=== PATIENT | female | born 1970 | race Caucasian/White ===

== ENCOUNTER 2017-05-28 06:20 | Emergency (ER) | payer BC, OTHER ==
[2017-05-28 06:31] VITALS: BP 147/76; PULSE 109; RESP 20; TEMP 98.5
[2017-05-28] MEDS ORDERED: AMOXICILLIN 500 MG CAP PO STA (07:22)
--- NOTE | 2017-05-28 07:22 | ED ---
General Adult HPI - General Chief complaint: Dental/Oral Stated complaint: dental/ear pain Time Seen by Provider: 05/28/17 07:00 Source: patient, RN notes reviewed Mode of arrival: ambulatory Limitations: no limitations - History of Present Illness Initial comments: This is a 46-year-old female who presents emergency Department complaining of left lower jaw pain she believes is related to her molar. Patient states been ongoing for a couple of days. Patient states it hurts to press in the tooth that she has noticed some swelling around the tooth. Rates she does have a dentist but has not seen him for this. Patient denies any fever. Patient denies any drainage in that area. Patient denies any jaw pain she is mostly complaining of the left lower molar is extremely tender - Related Data Home Medications Medication Instructions Recorded Confirmed ALPRAZolam [Xanax] 0.5 mg PO TID PRN 01/04/14 01/04/14 INSULIN LISPRO (humaLOG) [humaLOG] 0 units SQ DIRECTED 01/04/14 01/04/14 Insulin Glargine [Lantus] 27 unit SQ HS 01/04/14 01/04/14 Losartan [Cozaar] 25 mg PO DAILY 01/04/14 01/04/14 buPROPion HCL [Wellbutrin] 200 mg PO BID 01/04/14 01/04/14 Previous Rx's Medication Instructions Recorded Hydrocodone/Acetaminophen [Sunflower 1 each PO Q6HR PRN #20 tab 01/04/14 5-325] Clindamycin HCl 300 mg PO Q6H #40 cap 05/28/17 Hydrocodone/Acetaminophen [Sunflower 1 each PO Q4HR PRN #10 tab 05/28/17 5-325] Ibuprofen [Motrin] 600 mg PO Q6HR PRN #20 tab 05/28/17 Allergies Allergy/AdvReac Type Severity Reaction Status Date / Time Penicillins Allergy Unknown Verified 05/28/17 06:31 Review of Systems ROS Statement: Those systems with pertinent positive or pertinent negative responses have been documented in the HPI. ROS Other: All systems not noted in ROS Statement are negative. Past Medical History Past Medical History: Diabetes Mellitus History of Any Multi-Drug Resistant Organisms: None Reported Additional Past Surgical History / Comment(s): oral surgery Past Psychological History: Anxiety, Depression Smoking Status: Current every day smoker Past Alcohol Use History: Occasional Past Drug Use History: None Reported General Exam - General Exam Comments Initial Comments: fGENERAL Patient is well-developed and well-nourished. Patient is in mild distress. EYES Patient's pupils are equal and round. Extraocular motion is intact Mouth Patient has an abscess just adjacent to the lower left molar SKIN Unremarkable NEURO The patient is alert and oriented 3 PYSCH Patient has normal interpersonal interactions. MUSCULOSKELETAL Limitations: no limitations Course Vital Signs 05/28/17 06:27 Temperature 98.5 F Pulse Rate 109 H Respiratory 20 Rate Blood Pressure 147/76 O2 Sat by Pulse 99 Oximetry Procedures - Incision & Drainage Consent Obtained: verbal consent Time Out Performed?: No Site: other (Dental) Anesthetic Used: lidocaine 1% Needle Aspiration Performed?: Yes (Post was immediately obtained) Irrigation Performed?: No I&D Drainage Obtained: Pus, Blood Patient Tolerated Procedure: well Medical Decision Making - Medical Decision Making I performed an inferior alveolar dental block which worked well I did this prior to the I&D. Disposition Clinical Impression: Dental abscess Disposition: HOME SELF-CARE Condition: Good Instructions: Dental Abscess (ED) Prescriptions: Clindamycin HCl 300 mg PO Q6H #40 cap Hydrocodone/Acetaminophen [Sunflower 5-325] 1 each PO Q4HR PRN #10 tab PRN Reason: Pain Ibuprofen [Motrin] 600 mg PO Q6HR PRN #20 tab PRN Reason: For pain Referrals: None,Stated [Primary Care Provider] - 1-2 days Time of Disposition: 07:21
[2017-05-28] MEDS ORDERED: KETOROLAC 60 MG/2 ML VIAL IM STA (07:23)
[2017-05-28] MEDS ORDERED: CLINDAMYCIN 150 MG CAP PO STA (07:26)
== END 2017-05-28 07:44 | disposition home or self-care (01) ==
LOC: EC 06:20
DX: K04.7 Periapical abscess without sinus (principal); E11.9 Type 2 diabetes mellitus without complications; F32.9 Major depressive disorder, single episode, unspecified; F17.200 Nicotine dependence, unspecified, uncomplicated; Z79.4 Long term (current) use of insulin; Z79.899 Other long term (current) drug therapy; Z88.0 Allergy status to penicillin
CPT/HCPCS: 99283; 10160; 96372; J1885

== ENCOUNTER 2024-07-15 18:43 | Inpatient (IN) | payer BC, OTHER ==
--- NOTE | 2024-07-15 19:28 | ED ---
General Adult HPI - General Chief complaint: Altered Mental Status Stated complaint: petition Time Seen by Provider: 07/15/24 19:04 Source: patient, EMS Mode of arrival: EMS Limitations: altered mental status - History of Present Illness Initial comments: Pain is a 53-year-old female with history of type 1 diabetes and depression who was brought to the ER today by EMS with police escort for psychiatric evaluation. Apparently the patient was found screaming crying being very upset and inconsolable. Patient notes that she has not used any insulin since 1 AM yesterday and she has been drinking alcohol today. Patient is feeling depressed because she recently lost her job. Patient states she was not trying to harm herself and does not want to end her life she is just feeling very depressed. - Related Data Home Medications Medication Instructions Recorded Confirmed Unable To Assess [Unable to Assess] 07/15/24 07/15/24 Allergies Allergy/AdvReac Type Severity Reaction Status Date / Time Penicillins Allergy Unknown Verified 05/28/17 06:31 Review of Systems ROS Statement: Those systems with pertinent positive or pertinent negative responses have been documented in the HPI. ROS Other: All systems not noted in ROS Statement are negative. Past Medical History Past Medical History: Diabetes Mellitus History of Any Multi-Drug Resistant Organisms: None Reported Additional Past Surgical History / Comment(s): oral surgery Past Psychological History: Anxiety, Depression Past Alcohol Use History: Occasional Past Drug Use History: None Reported General Exam - General Exam Comments Initial Comments: Physical Exam GENERAL: Agitated, screaming HENT: Normocephalic, Atraumatic. Dry mucous membranes, cracked lips EYES: PERRL, EOMI PULMONARY: Unlabored respirations. CARDIOVASCULAR: Warm and well perfused extremities ABDOMEN: Non-distended SKIN: No rashes or bruising : Deferred NEUROLOGIC: Alert and oriented Normal gait Pressured speech MUSCULOSKELETAL: Moving all extremities with no apparent injury PSYCHIATRIC: Agitated, combative, depressed Limitations: altered mental status Course Vital Signs 07/15/24 07/15/24 18:47 20:52 Temperature 98.6 F Pulse Rate 98 Respiratory 20 18 Rate Blood Pressure 136/72 O2 Sat by Pulse 98 Oximetry EKG Findings - EKG Comments: EKG Findings:: EKG interpreted by me EKG obtained due to tachycardia EKG obtained at 2331 EKG with a rate of 106 rhythm is sinus tach normal axis normal intervals OK 128 QRS 79 QTc 4 9 there are no acute ST elevations or depressions no evidence of ischemia infarction or pathologic arrhythmia. Medical Decision Making - Medical Decision Making Was pt. sent in by a medical professional or institution ([facility], [employer], urgent care, hospital, or [facility]...) When possible be specific @ -No Did you speak to anyone other than the patient for history (EMS, parent, family, police, friend...)? What history was obtained from this source @ -EMS, law enforcement Did you review nursing and triage notes (agree or disagree)? Why? @ -I reviewed and agree with nursing and triage notes Were old charts reviewed (outside hosp., previous admission, EMS record, old EKG, old radiological studies, urgent care reports/EKG's, [facility] records)? Report findings @ -Previous notes were reviewed Differential Diagnosis (chest pain, altered mental status, abdominal pain women, abdominal pain men, vaginal bleeding, weakness, fever, dyspnea, syncope, headache, dizziness, GI bleed, back pain, seizure, CVA, palpatations, mental health)? @ -Differential Mental Health Depression, anxiety, bipolar, psychosis, schizophrenia, borderline personality, situational depression, adjustment disorder, behavioral disorder, brain tumor, malingering, substance abuse, encephalopathy, medication reaction, dementia, hypothyroidism, degenerative neurologic disorder, lupus.... This is not meant to be all-inclusive list EKG interpreted by me (3pts min.). @ -As above X-rays interpreted by me (1pt min.). @ -None done CT interpreted by me (1pt min.). @ -None done U/S interpreted by me (1pt. min.). @ -None done What testing was considered but not performed or refused? (CT, X-rays, U/S, labs)? Why? @ -None What meds were considered but not given or refused? Why? @ -None Did you discuss the management of the patient with other professionals (professionals i.e. [facility], [employer], lab, RT, psych nurse, 7th grade social studies teacher, liquid fertilizer servicer, teacher, parole hearing officer, case aide)? Give summary @ -No Was smoking cessation discussed for >3mins.? @ -No Was critical care preformed (if so, how long)? @ -Yes, 45 minutes Were there social determinants of health that impacted care today? How? (Homelessness, low income, unemployed, alcoholism, drug addiction, transportation, low edu. Level, literacy, decrease access to med. care, senior care, rehab)? @ -Decreased access to medical care, lack of medical insurance, low income, unemployed Was there de-escalation of care discussed even if they declined (Discuss DNR or withdrawal of care, Hospice)? DNR status @ -No What co-morbidities impacted this encounter? (DM, HTN, Smoking, COPD, CAD, Cancer, CVA, ARF, Chemo, Hep., AIDS, mental health diagnosis, sleep apnea, morbid obesity)? @ -Type 1 diabetes, mental health diagnosis Was patient admitted / discharged? Hospital course, mention meds given and route, prescriptions, significant lab abnormalities, going to OR and other pertinent info. @ -Admit The patient was seen and evaluated, history is obtained from patient. Patient is acutely agitated crying refusing any interaction, screaming at staff. Denilson carmen does admit to depression, alcohol intoxication and failure to use her insulin for over 36 hours. At this time patient has been petitioned for her own protection due to concern of danger to herself. Patients agitation was treated with Haldol and Ativan, patient then become much more calm we were able to establish IV access obtain blood check her glucose note that she was profoundly hyperglycemic and began treatment for possible DKA. Labs are consistent with DKA, IV fluids and insulin were ordered. Patient will be admitted overnight for treatment of DKA with the plan for consult to psy chiatric services when the patient is medically cleared. Undiagnosed new problem with uncertain prognosis? @ -No Drug Therapy requiring intensive monitoring for toxicity (Heparin, Nitro, Insulin, Cardizem)? @ -Yes, insulin Were any procedures done? @ -No Diagnosis/symptom? @ -DKA due to medication noncompliance, depression, alcohol intoxication Acute, or Chronic, or Acute on Chronic? @ -Acute Uncomplicated (without systemic symptoms) or Complicated (systemic symptoms)? @ -Complicated Side effects of treatment? @ -No Exacerbation, Progression, or Severe Exacerbation? @ -No Poses a threat to life or bodily function? How? (Chest pain, [place], [place], pneumonia, PE, COPD, DKA, ARF, appy, cholecystitis, CVA, Diverticulitis, Homicidal, Suicidal, threat to staff... and all critical care pts) @ -Yes, can lead to electrolyte abnormalities cardiac dysrhythmia renal failure and - Lab Data Result diagrams: 07/15/24 20:42 07/15/24 20:42 Lab Results 07/15/24 07/15/24 07/15/24 Range/Units 20:42 20:42 20:42 WBC 6.8 (3.8-10.6) k/uL RBC 4.68 (3.80-5.40) m/uL Hgb 14.4 (11.4-16.0) gm/dL Hct 44.8 (34.0-46.0) % MCV 95.7 (80.0-100.0) fL MCH 30.8 (25.0-35.0) pg MCHC 32.2 (31.0-37.0) g/dL RDW 12.3 (11.5-15.5) % Plt Count 247 (150-450) k/uL MPV 7.6 Neutrophils % 78 % Lymphocytes % 16 % Monocytes % 3 % Eosinophils % 1 % Basophils % 1 % Neutrophils # 5.3 (1.3-7.7) k/uL Lymphocytes # 1.1 (1.0-4.8) k/uL Monocytes # 0.2 (0-1.0) k/uL Eosinophils # 0.1 (0-0.7) k/uL Basophils # 0.1 (0-0.2) k/uL Sodium 134 L (137-145) mmol/L Potassium 4.5 (3.5-5.1) mmol/L Chloride 99 (98-107) mmol/L Carbon Dioxide 15 L (22-30) mmol/L Anion Gap 20 mmol/L BUN 15 (7-17) mg/dL Creatinine 1.04 (0.52-1.04) mg/dL Est GFR (CKD-EPI)AfAm 72 (>60 ml/min/1.73 sqM) Est GFR (CKD-EPI)NonAf 63 (>60 ml/min/1.73 sqM) Glucose 547 H* (74-99) mg/dL POC Glucose (mg/dL) (70-110) mg/dL POC Glu Web Developer Programmer ID Lactic Ac Sepsis Rflx Plasma Lactic Acid [place] 5.8 H* (0.7-2.0) mmol/L Calcium 9.3 (8.4-10.2) mg/dL Magnesium 2.2 (1.6-2.3) mg/dL Total Bilirubin 0.7 (0.2-1.3) mg/dL AST 26 (14-36) U/L ALT 20 (4-34) U/L Alkaline Phosphatase 78 (38-126) U/L Total Protein 7.3 (6.3-8.2) g/dL Albumin 4.8 (3.5-5.0) g/dL Urine Color Urine Appearance (Clear) Urine pH (5.0-8.0) Ur Specific [place] (1.001-1.035) Urine Protein (Negative) Urine Glucose (UA) (Negative) Urine Ketones (Negative) Urine Blood (Negative) Urine Nitrite (Negative) Urine Bilirubin (Negative) Urine Urobilinogen (<2.0) mg/dL Ur Leukocyte Esterase (Negative) Salicylates <1.0 mg/dL Urine Opiates Screen (NotDetected) Ur Oxycodone Screen (NotDetected) Urine Methadone Screen (NotDetected) Acetaminophen <10.0 ug/mL Ur Barbiturates Screen (NotDetected) U Tricyclic Antidepress (NotDetected) Ur Phencyclidine Scrn (NotDetected) Ur Amphetamines Screen (NotDetected) U Methamphetamines Scrn (NotDetected) U Benzodiazepines Scrn (NotDetected) Urine Cocaine Screen (NotDetected) U Marijuana (THC) Screen (NotDetected) Serum Alcohol 148 mg/dL Acetone, Qual Negative (Negative) 07/15/24 07/15/24 07/15/24 Range/Units 20:47 21:05 22:20 WBC (3.8-10.6) k/uL RBC (3.80-5.40) m/uL Hgb (11.4-16.0) gm/dL Hct (34.0-46.0) % MCV (80.0-100.0) fL MCH (25.0-35.0) pg MCHC (31.0-37.0) g/dL RDW (11.5-15.5) % Plt Count (150-450) k/uL MPV Neutrophils % % Lymphocytes % % Monocytes % % Eosinophils % % Basophils % % Neutrophils # (1.3-7.7) k/uL Lymphocytes # (1.0-4.8) k/uL Monocytes # (0-1.0) k/uL Eosinophils # (0-0.7) k/uL Basophils # (0-0.2) k/uL Sodium (137-145) mmol/L Potassium (3.5-5.1) mmol/L Chloride (98-107) mmol/L Carbon Dioxide (22-30) mmol/L Anion Gap mmol/L BUN (7-17) mg/dL Creatinine (0.52-1.04) mg/dL Est GFR (CKD-EPI)AfAm (>60 ml/min/1.73 sqM) Est GFR (CKD-EPI)NonAf (>60 ml/min/1.73 sqM) Glucose (74-99) mg/dL POC Glucose (mg/dL) 500 H (70-110) mg/dL POC Glu Web Developer Programmer ID MARILEE SCIANDRA Lactic Ac Sepsis Rflx Y Plasma Lactic Acid [place] (0.7-2.0) mmol/L Calcium (8.4-10.2) mg/dL Magnesium (1.6-2.3) mg/dL Total Bilirubin (0.2-1.3) mg/dL AST (14-36) U/L ALT (4-34) U/L Alkaline Phosphatase (38-126) U/L Total Protein (6.3-8.2) g/dL Albumin (3.5-5.0) g/dL Urine Color Colorless Urine Appearance Clear (Clear) Urine pH 5.0 (5.0-8.0) Ur Specific [place] 1.024 (1.001-1.035) Urine Protein Negative (Negative) Urine Glucose (UA) 4+ H (Negative) Urine Ketones Negative (Negative) Urine Blood Negative (Negative) Urine Nitrite Negative (Negative) Urine Bilirubin Negative (Negative) Urine Urobilinogen <2.0 (<2.0) mg/dL Ur Leukocyte Esterase Negative (Negative) Salicylates mg/dL Urine Opiates Screen Not Detected (NotDetected) Ur Oxycodone Screen Not Detected (NotDetected) Urine Methadone Screen Not Detected (NotDetected) Acetaminophen ug/mL Ur Barbiturates Screen Not Detected (NotDetected) U Tricyclic Antidepress Not Detected (NotDetected) Ur Phencyclidine Scrn Not Detected (NotDetected) Ur Amphetamines Screen Not Detected (NotDetected) U Methamphetamines Scrn Not Detected (NotDetected) U Benzodiazepines Scrn Not Detected (NotDetected) Urine Cocaine Screen Not Detected (NotDetected) U Marijuana (THC) Screen Not Detected (NotDetected) Serum Alcohol mg/dL Acetone, Qual (Negative) 07/15/24 Range/Units 22:31 WBC (3.8-10.6) k/uL RBC (3.80-5.40) m/uL Hgb (11.4-16.0) gm/dL Hct (34.0-46.0) % MCV (80.0-100.0) fL MCH (25.0-35.0) pg MCHC (31.0-37.0) g/dL RDW (11.5-15.5) % Plt Count (150-450) k/uL MPV Neutrophils % % Lymphocytes % % Monocytes % % Eosinophils % % Basophils % % Neutrophils # (1.3-7.7) k/uL Lymphocytes # (1.0-4.8) k/uL Monocytes # (0-1.0) k/uL Eosinophils # (0-0.7) k/uL Basophils # (0-0.2) k/uL Sodium (137-145) mmol/L Potassium (3.5-5.1) mmol/L Chloride (98-107) mmol/L Carbon Dioxide (22-30) mmol/L Anion Gap mmol/L BUN (7-17) mg/dL Creatinine (0.52-1.04) mg/dL Est GFR (CKD-EPI)AfAm (>60 ml/min/1.73 sqM) Est GFR (CKD-EPI)NonAf (>60 ml/min/1.73 sqM) Glucose (74-99) mg/dL POC Glucose (mg/dL) 374 H (70-110) mg/dL POC Glu Web Developer Programmer ID Caya Destiny Lactic Ac Sepsis Rflx Plasma Lactic Acid [place] (0.7-2.0) mmol/L Calcium (8.4-10.2) mg/dL Magnesium (1.6-2.3) mg/dL Total Bilirubin (0.2-1.3) mg/dL AST (14-36) U/L ALT (4-34) U/L Alkaline Phosphatase (38-126) U/L Total Protein (6.3-8.2) g/dL Albumin (3.5-5.0) g/dL Urine Color Urine Appearance (Clear) Urine pH (5.0-8.0) Ur Specific [place] (1.001-1.035) Urine Protein (Negative) Urine Glucose (UA) (Negative) Urine Ketones (Negative) Urine Blood (Negative) Urine Nitrite (Negative) Urine Bilirubin (Negative) Urine Urobilinogen (<2.0) mg/dL Ur Leukocyte Esterase (Negative) Salicylates mg/dL Urine Opiates Screen (NotDetected) Ur Oxycodone Screen (NotDetected) Urine Methadone Screen (NotDetected) Acetaminophen ug/mL Ur Barbiturates Screen (NotDetected) U Tricyclic Antidepress (NotDetected) Ur Phencyclidine Scrn (NotDetected) Ur Amphetamines Screen (NotDetected) U Methamphetamines Scrn (NotDetected) U Benzodiazepines Scrn (NotDetected) Urine Cocaine Screen (NotDetected) U Marijuana (THC) Screen (NotDetected) Serum Alcohol mg/dL Acetone, Qual (Negative) Critical Care Time Critical Care Time: Yes Total Critical Care Time: 45 Critical Care Time: Critical Care Time 45 Critical care time was exclusive of separately billable procedures and treating other patients and teaching time. Critical care was necessary to treat or prevent imminent or life-threatening deterioration. Given the critical condition in which the patient arrived, the patient was immediately assessed by myself and the nurse, and cardiac monitoring initiated due to the potential for rapid decompensation of the patient's clinical condition. During the course of the patients stay, I spent a considerable amount of time at the bedside performing serial re-evaluations of the patient's hemodynamic and clinical status because of the recognized potential threat to life or limb in this condition. I then had a chance to review not only all of the available current laboratory and radiographic studies obtained today, but I also reviewed old records available to me at the time. Additionally, any an cillary information available including forensic economist records were reviewed. Sequential vital signs were obtained. Disposition Clinical Impression: Alcoholic intoxication, DKA (diabetic ketoacidosis), Depression Disposition: ADMITTED IP TO THIS HOSP Condition: Serious Is patient prescribed a controlled substance at d/c from ED?: No Referrals: None,Stated [Primary Care Provider] - 1-2 days
[2024-07-15] MEDS: LORazepam 2 MG/ML INJ IM STA (19:36)
[2024-07-15] MEDS: diphenhydrAMINE 50 MG/ML 1 ML VIAL IM STA (19:36)
[2024-07-15] MEDS: HALOPERIDOL LACTATE 5 MG/ML 1 ML VIAL IM STA (19:37)
[2024-07-15] MEDS: SODIUM CHLORIDE 0.9% 1,000 ML IV ONE (20:46)
[2024-07-15] MEDS: SODIUM CHLORIDE 0.9% 1,000 ML IV SCH (20:47)
[2024-07-15 20:48] LABS: Glucose,Whole Blood 500 mg/dL (70-110)
[2024-07-15 20:52] LABS: Basophils # (A) 0.1 k/uL (0-0.2); Basophils % (A) 1 %; Eosinophils # (A) 0.1 k/uL (0-0.7); Eosinophils % (A) 1 %; HCT 44.8 % (34.0-46.0); HGB 14.4 gm/dL (11.4-16.0); Lymphocytes # (A) 1.1 k/uL (1.0-4.8); Lymphocytes % (A) 16 %; MCH 30.8 pg (25.0-35.0); MCHC 32.2 g/dL (31.0-37.0); MCV 95.7 fL (80.0-100.0); Mean Platelet Volume 7.6; Monocytes # (A) 0.2 k/uL (0-1.0); Monocytes % (A) 3 %; Neutrophils # (A) 5.3 k/uL (1.3-7.7); Neutrophils % (A) 78 %; Platelet Count 247 k/uL (150-450); RBC 4.68 m/uL (3.80-5.40); RDW 12.3 % (11.5-15.5); WBC 6.8 k/uL (3.8-10.6)
[2024-07-15 21:11] LABS: ALT 20 U/L (4-34); Acetaminophen <10.0 ug/mL; African American GFR (CKD) 72 (>60 ml/min/1.73 sqM); Albumin 4.8 g/dL (3.5-5.0); Anion Gap 20 mmol/L; Blood Urea Nitrogen 15 mg/dL (7-17); Calcium 9.3 mg/dL (8.4-10.2); Carbon Dioxide 15 mmol/L (22-30); Chloride 99 mmol/L (98-107); Non-African American GFR(CKD) 63 (>60 ml/min/1.73 sqM); Salicylate <1.0 mg/dL; Sodium 134 mmol/L (137-145); Total Bilirubin 0.7 mg/dL (0.2-1.3); Total Protein 7.3 g/dL (6.3-8.2)
[2024-07-15 21:17] LABS: AST 26 U/L (14-36); Glucose 547 mg/dL (74-99); Potassium 4.5 mmol/L (3.5-5.1)
[2024-07-15 21:18] LABS: Alkaline Phosphatase 78 U/L (38-126); Magnesium 2.2 mg/dL (1.6-2.3)
[2024-07-15 21:19] LABS: Alcohol 148 mg/dL
[2024-07-15] MEDS ORDERED: Magnesium Replacement Protocol 1 EACH MISC MISCELLANE PRN (21:41)
[2024-07-15] MEDS ORDERED: Potassium Replacement Protocol 1 EACH MISC MISCELLANE PRN (21:41)
[2024-07-15] MEDS ORDERED: DEXTROSE 50% SYRINGE 50 ML IVP PRN ×2 (21:41)
[2024-07-15] MEDS: INSULIN REGULAR 100 UNIT in SODIUM CHLORIDE 0.9% 100 ML IV SCH (22:17)
[2024-07-15] MEDS: INSULIN REGULAR BOLUS (FROM DRIP BAG) IV ONE (22:25)
[2024-07-15 22:33] LABS: Glucose,Whole Blood 374 mg/dL (70-110)
[2024-07-15 22:53] LABS: Appearance,Urine Clear (Clear); Bilirubin,Urine Negative (Negative); Blood,Urine Negative (Negative); Color,Urine Colorless; Glucose,Urine (UA) 4+ (Negative); Ketones,Urine Negative (Negative); Leukocyte Esterase,Urine Negative (Negative); Nitrite,Urine Negative (Negative); Protein,Urine Negative (Negative); Specific Gravity,Urine 1.024 (1.001-1.035); Urobilinogen,Urine <2.0 mg/dL (<2.0)
[2024-07-15 23:25] LABS: Amphetamine Screen,Urine Not Detected (NotDetected); Barbiturate Screen,Urine Not Detected (NotDetected); Benzodiazepines Screen,Urine Not Detected (NotDetected); Cocaine Screen,Urine Not Detected (NotDetected); Methadone Screen, Urine Not Detected (NotDetected); Opiate Screen,Urine Not Detected (NotDetected); Oxycodone Screen, Urine Not Detected (NotDetected); Phencyclidine Screen,Urine Not Detected (NotDetected); Tricyclic Antidepressant,Urine Not Detected (NotDetected); Urn Cannabinoid Scrn Not Detected (NotDetected)
[2024-07-15 23:41] LABS: Glucose,Whole Blood 105 mg/dL (70-110)
[2024-07-16] MEDS: D5-0.45% NACL WITH KCL 20MEQ/L 1,000 ML IV SCH (00:03)
[2024-07-16 00:47] LABS: VBG PH 7.36 (7.31-7.41)
[2024-07-16 00:55] LABS: African American GFR (CKD) 87 (>60 ml/min/1.73 sqM); Anion Gap 13 mmol/L; Blood Urea Nitrogen 14 mg/dL (7-17); Carbon Dioxide 20 mmol/L (22-30); Chloride 106 mmol/L (98-107); Glucose 71 mg/dL (74-99); Non-African American GFR(CKD) 75 (>60 ml/min/1.73 sqM); Phosphorus 2.8 mg/dL (2.5-4.5); Potassium 3.9 mmol/L (3.5-5.1); Sodium 139 mmol/L (137-145)
[2024-07-16 00:59] LABS: Glucose,Whole Blood 54 mg/dL (70-110)
[2024-07-16 01:48] LABS: Glucose,Whole Blood 127 mg/dL (70-110)
[2024-07-16 02:53] LABS: Glucose,Whole Blood 163 mg/dL (70-110)
[2024-07-16 03:55] LABS: Glucose,Whole Blood 98 mg/dL (70-110)
[2024-07-16 05:45] LABS: Glucose,Whole Blood 107 mg/dL (70-110)
[2024-07-16 05:57] LABS: African American GFR (CKD) >90 (>60 ml/min/1.73 sqM); Anion Gap 6 mmol/L; Blood Urea Nitrogen 15 mg/dL (7-17); Carbon Dioxide 24 mmol/L (22-30); Chloride 106 mmol/L (98-107); Glucose 93 mg/dL (74-99); Non-African American GFR(CKD) >90 (>60 ml/min/1.73 sqM); Phosphorus 3.4 mg/dL (2.5-4.5); Potassium 4.3 mmol/L (3.5-5.1); Sodium 136 mmol/L (137-145)
[2024-07-16 06:51] LABS: Glucose,Whole Blood 116 mg/dL (70-110)
[2024-07-16] MEDS ORDERED: DEXTROSE 50% SYRINGE 50 ML IVP PRN ×2 (08:10)
[2024-07-16 08:49] LABS: Glucose,Whole Blood 139 mg/dL (70-110)
[2024-07-16] MEDS ORDERED: LORazepam 1 MG TAB PO PRN ×3 (09:49)
[2024-07-16] MEDS ORDERED: LORazepam 0.5 MG TAB PO PRN (09:49)
--- NOTE | 2024-07-16 09:52 | P.HPIM ---
History of Present Illness H&P Date: 07/16/24 Patient is a 53-year-old female with history of anxiety, depression, type 1 diabetes was brought to the ER via EMS with police escort for psychiatric evaluation. As per the note and while talking to the patient today this morning, patient was found screaming and crying on the ground outside neighbors house because she was being very upset from last couple of days after getting fired from her job. Patient reports that since she was type 1 diabetes and she has been changing her insulin regimen from last 3 days or so. However she admits that she has been taking long-acting insulin 30 units in the morning and as needed short acting insulin with meals. She also reports that she is taking Cymbalta 60 mg once daily and Wellbutrin 200 mg twice daily. She is now following any psychiatrist but has a primary care physician. Patient reports no smoking or use of illicit drugs. Initial laboratory evaluation shows WBC 6.8, hemoglobin 14.4, sodium 134, potassium 4.5, chloride 99, bicarb 15, anion gap 20, BUN 15, creatinine 1.04, glucose 457, serum osmolality 344, lactic acid 5.8,. Hematuria on urinalysis. UDS positive for serum alcohol 148. Subsequent lab work from 07/16/2024 shows sodium 136, potassium 4.3, chloride 106, bicarb 24, anion gap 6, BUN 16, creatinine 0.74, glucose 139, lactic acid 0.08. EKG shows sinus tachycardia ventricular rate of 106 bpm, ND interval 128 ms, QRS duration 79 ms, QTc 409 ms Review of systems: Patient denies shortness of breath, chest pain, nausea, vomiting, numbness, weakness, tingling in upper or lower extremities. Pertinent positives and negatives as discussed in HPI, a complete review of systems was performed and all other systems are negative. Social history: Above as in HPI Physical examination: Vital signs reviewed General: non toxic, no distress, appears at stated age, overweight Derm: no unusual rashes/lesions, warm Head: atraumatic, normocephalic, symmetric Eyes: EOMI, no lid lag, anicteric sclera, pupils equal round reactive to light ENT: Nose and ears atraumatic Neck: No cervical lymphadenopathy, trachea midline, supple Mouth: no lip lesion, mucus membranes moist Cardiovascular: S1S2 reg, no murmur, positive dorsalis pedis pulse bilateral, no edema Lungs: CTA bilateral, no rhonchi, no rales, no accessory muscle use Abdominal: soft, nontender to palpation, no guarding Ext: muscle strength 5 out of 5 in all 4 extremities grossly, no gross muscle atrophy, no contractures, Neuro: CN II-XI grossly intact, no gross focal neuro deficits Psych: Alert, oriented, to be evaluated by psychiatry Assessment/Plan: This is a Patient is a 53-year-old female with history of anxiety, depression, type 1 diabetes was brought to the ER via EMS with police escort for psychiatric evaluation. Case was discussed with the Emergency Room provider and decision was made to admit the patient for psychiatric evaluation and DKA Labs and images: Initial laboratory evaluation shows WBC 6.8, hemoglobin 14.4, sodium 134, potassium 4.5, chloride 99, bicarb 15, anion gap 20, BUN 15, creatinine 1.04, glucose 457, serum osmolality 344, lactic acid 5.8,. Hematuria on urinalysis. UDS positive for serum alcohol 148. Subsequent lab work from 07/16/2024 shows sodium 136, potassium 4.3, chloride 106, bicarb 24, anion gap 6, BUN 16, creatinine 0.74, glucose 139, lactic acid 0.08. EKG shows sinus tachycardia ventricular rate of 106 bpm, ND interval 128 ms, QRS duration 79 ms, QTc 409 ms Active: #Diabetic ketoacidosis in the setting of type 1 diabetes In the ED patient was on insulin drip 0.1 units/kg/h Anion gap has been closed Transition from insulin drip to subcutaneous insulin regimen Start patient on Lantus 15 units subcu twice daily and Humalog 5 units subcu AC 3 times daily Continue monitor BMP and glucose Patient is not complaining of nausea vomiting Start patient on consistent carbohydrate diet as tolerated Also add sliding scale insulin Monitor for hypoglycemia #History of depression and anxiety # History of alcohol abuse Consult psychiatry for psych evaluation Resume medications once confirmed through pharmacy Order TSH Initiate CICT protocol DVT prophylaxis: SCDs GI prophylaxis: Protonix 40 mg p.o. OD F: As needed E: Replete as needed N: Consistent carbohydrate diet A: Ambulatory at baseline The patient is admitted with an anticipated less than than 2 midnight stay for evaluation of DKA and depression CODE STATUS: Full code Discussed with: Patient Anticipated discharge place: Pending clinical course Dictation was produced using [employer] software. Please excuse any grammatical, word or spelling errors. Past Medical History Past Medical History: Diabetes Mellitus History of Any Multi-Drug Resistant Organisms: None Reported Additional Past Surgical History / Comment(s): oral surgery Past Psychological History: Anxiety, Depression Past Alcohol Use History: Occasional Past Drug Use History: None Reported Medications and Allergies Home Medications Medication Instructions Recorded Confirmed Type DULoxetine HCL [Cymbalta] 60 mg PO DAILY 07/16/24 07/16/24 History Insulin Aspart [Insulin Aspart See Protocol SQ TID-W/MEALS PRN 07/16/24 07/16/24 History Flexpen] Insulin Glargine,Hum.rec.anlog 31 units SQ DAILY 07/16/24 07/16/24 History [Lantus Solostar Pen] buPROPion HCL [Wellbutrin SR] 200 mg PO BID 07/16/24 07/16/24 History Allergies Allergy/AdvReac Type Severity Reaction Status Date / Time Penicillins Allergy Unknown Verified 05/28/17 06:31 Physical Exam Vitals: Vital Signs Temp Pulse Resp BP Pulse Ox 07/16/24 06:53 97.8 F 97 16 146/77 100 07/15/24 20:52 98.6 F 98 18 136/72 98 07/15/24 18:47 20 Intake and Output 07/15/24 07/16/24 07/16/24 22:59 06:59 14:59 Intake Total 20.363 Balance 20.363 Intake: Intake, IV Titration 20.363 Amount Insulin Regular 100 unit 20.363 In Sodium Chloride 0.9% 100 ml @ 0.1 UNITS/KG/HR 7.788 mls/hr IV .[id number] [facility] Rx#:[id number] Other: Weight 77.111 kg Results CBC & Chem 7: 07/15/24 20:42 07/16/24 05:08 Labs: Abnormal Lab Results - Last 24 Hours (Table) 07/15/24 07/15/24 07/15/24 Range/Units 20:42 20:42 20:47 VBG HCO3 (24-28) mmol/L Sodium 134 L (137-145) mmol/L Carbon Dioxide 15 L (22-30) mmol/L Glucose 547 H* (74-99) mg/dL POC Glucose (mg/dL) 500 H (70-110) mg/dL Osmolality 344 H (275-295) mOsm/kg Plasma Lactic Acid Juan Pablo 5.8 H* (0.7-2.0) mmol/L Urine Glucose (UA) (Negative) 07/15/24 07/15/24 07/16/24 Range/Units 22:20 22:31 00:05 VBG HCO3 (24-28) mmol/L Sodium (137-145) mmol/L Carbon Dioxide 20 L (22-30) mmol/L Glucose 71 L (74-99) mg/dL POC Glucose (mg/dL) 374 H (70-110) mg/dL Osmolality (275-295) mOsm/kg Plasma Lactic Acid Juan Pablo (0.7-2.0) mmol/L Urine Glucose (UA) 4+ H (Negative) 07/16/24 07/16/24 07/16/24 Range/Units 00:05 00:05 00:53 VBG HCO3 21 L (24-28) mmol/L Sodium (137-145) mmol/L Carbon Dioxide (22-30) mmol/L Glucose (74-99) mg/dL POC Glucose (mg/dL) 54 L (70-110) mg/dL Osmolality (275-295) mOsm/kg Plasma Lactic Acid Juan [place] 3.8 H* (0.7-2.0) mmol/L Urine Glucose (UA) (Negative) 07/16/24 07/16/24 07/16/24 Range/Units 01:45 02:51 05:08 VBG HCO3 (24-28) mmol/L Sodium 136 L (137-145) mmol/L Carbon Dioxide (22-30) mmol/L Glucose (74-99) mg/dL POC Glucose (mg/dL) 127 H 163 H (70-110) mg/dL Osmolality (275-295) mOsm/kg Plasma Lactic Acid Juan Pablo (0.7-2.0) mmol/L Urine Glucose (UA) (Negative) 07/16/24 Range/Units 06:50 VBG HCO3 (24-28) mmol/L Sodium (137-145) mmol/L Carbon Dioxide (22-30) mmol/L Glucose (74-99) mg/dL POC Glucose (mg/dL) 116 H (70-110) mg/dL Osmolality (275-295) mOsm/kg Plasma Lactic Acid Juan Pablo (0.7-2.0) mmol/L Urine Glucose (UA) (Negative)
[2024-07-16] MEDS: INSULIN GLARGINE (LANTUS) 100 UNIT/ML SYR SQ SCH ×2 (10:18→21:20)
[2024-07-16 12:38] LABS: Glucose,Whole Blood 342 mg/dL (70-110)
[2024-07-16] MEDS: INSULIN LISPRO (HumaLOG) 100 UNIT/ML 10 mL VL SQ SCH ×2 (12:42→12:43)
[2024-07-16] MEDS ORDERED: traZODone HCL 50 MG TAB PO PRN (13:56)
--- NOTE | 2024-07-16 14:03 | P.CN ---
Psychiatric Consult - . Consult date: 07/16/24 Consult:: 07/16/24 13:00 IDENTIFYING DATA: This patient is a 53-year-old female, she is single she has no kids she lives alone in a house unemployed REASON FOR REFERRAL: Psychiatry was consulted for psychiatric evaluation, history of depression HISTORY OF PRESENT ILLNESS: The patient presented to the hospital initially on 07/15, was brought in by EMS and also police for evaluation. Patient apparently has a history of type 1 diabetes and depression. Patient also has been using alcohol, allegedly not taking her insulin, was reported that she recently lost her job. Blood glucose was 547 on admission found to be in DKA. Blood alcohol level was 148. Patient was seen today at the bedside agreeable to speak to brief writer. She had her back turned, however with time she eventually turned her over and was more interactive with brief writer. She initially was fairly guarded and evasive about why she is here in the hospital claims that "I do not know". She does not know who called the police to bring her in. She states that she was f eeling very tearful emotional over getting fired recently. Claims that she worked at a job in [employer] job for about 3 days and claims that "they thought I was not a good fit". She claims that she does not think people will want to hire her due to being diabetic. She is stating that she is feeling a bit depressed at this time however that has improved, claims that she is also having some kind of anxiety. States that her sleep has been on and off appetite has been fair. She states that she wants to live for her dogs and also due to her hinduism. Claims that she does have 1 gun however it is locked away. At this time patient denies any current suicidal or homical ideations, intent or plan. Patient denies any auditory, visual hallucinations and denies any paranoia or delusions. Patients admits to using alcohol and states that she drinks anywhere from 2-4 beers a day. Claims that she has never been to rehab, claims that she also vapes nicotine products. Denies any other recreational drug use. Patient's nurse states that she has had no significant behavioral issues at this time. PAST PSYCHIATRIC HISTORY: Patient has a a history of depression/anxiety, alcohol use. She claims that she is currently taking Wellbutrin and Cymbalta, this is being prescribed by her primary care doctor. Patient denies any previous psychiatric hospitalizations. Patient denies any psychiatric outpatient follow- up. Patient denies any history of suicide attempts in the past. PAST MEDICAL HISTORY: As per medical H&P ALLERGIES: as per EMR. CHEMICAL DEPENDENCY HISTORY: as per HPI. FAMILY PSYCHIATRIC/SUBSTANCE USE HISTORY: Denies SOCIAL HISTORY: Patient was born and raised in [place] and also [place] [facility]. Claims that she completed high school did 2 associates degrees. Claims that she also used to work in [employer], recently let go from her job now is unemployed. Denies any legal history. Claims that she currently lives alone she is single she lives in a house. MENTAL STATUS EXAM: General Appearance: Patient appears to be short hair, poor dentition, stated age is alert, attempts to be cooperative. Patient appears to have fair hygiene and grooming wearing hospital gown with poor eye contact. Behavior: Patient is calmly lying in bed without any agitated behavior. Attempts to cooperate Speech: Patient's speech is fluent and nonpressured. Soft tone of voice Mood/Affect: Patient reports their mood is "a bit better", affect is congruent Suicidality/Homicidality: Patient denies having any suicidal or homicidal ideation intent or plan. Perceptions: Patient denies any visual hallucinations and denies any auditory hallucinations Though content/process: There is no evidence of any delusional thought content and thought process is linear and goal-directed. More future oriented. Minimizing alcohol use and need for being in the hospital Memory and concentration: AOX3, grossly intact for the purposes of this session. Can spell "WORLD" backwards Judgment and insight: fair IMPRESSIONS: Depressive disorder unspecified Anxiety disorder unspecified DKA Alcohol use disorder Nicotine dependence PLAN: -At this time patient DOES NOT meet criteria for inpatient psychiatric admission. -Would recommend the following medication changes/additions: Patient can be restarted back on Cymbalta 60 mg daily for mood/anxiety. At this time would suggest holding Wellbutrin due to patient's drinking and possible risk of seizure. Bosom Presser offered patient anticraving medications such as naltrexone and acamprosate however patient declined them. Trazodone 50 mg nightly as needed for insomnia -CIWA protocol with PRN Ativan for alcohol withdrawal. Continue to monitor vital signs. -asbestos removal worker to provide patient with outpatient mental health/psychiatry resources for appropriate follow up upon discharge] -Bosom Presser spoke with patient about substance abuse and the harmful effects on medical and mental health, patient verbally understood and agreed. -asbestos removal worker to provide patient substance use treatment resources including AA/NA meetings in the community. -asbestos removal worker to provide patient with access line number to call for inpatient substance rehab -Communicated plan to patient's nurse -Psychiatry will sign off at this time. if patients condition worsens then please either reconsult or contact MH team for further recommendations -Please contact with any questions. 07/16/24 13:56
[2024-07-16] MEDS: DULoxetine HCL 60 MG CAPSULE.DR PO SCH (14:18)
[2024-07-16 14:59] LABS: Glucose,Whole Blood 312 mg/dL (70-110)
[2024-07-16 16:47] LABS: Glucose,Whole Blood 273 mg/dL (70-110)
[2024-07-16 19:54] VITALS: RESP 17
[2024-07-16] MEDS ORDERED: INSULIN GLARGINE (LANTUS) 100 UNIT/ML SYR SQ SCH (21:00)
[2024-07-16 21:10] LABS: Glucose,Whole Blood 266 mg/dL (70-110)
[2024-07-17 01:54] LABS: Glucose,Whole Blood 91 mg/dL (70-110)
[2024-07-17 06:12] LABS: Glucose,Whole Blood 150 mg/dL (70-110)
[2024-07-17 07:56] VITALS: BP 133/72; PULSE 77; TEMP 98.3
[2024-07-17] MEDS: THIAMINE 100 MG TAB PO SCH (08:58)
[2024-07-17 09:21] LABS: African American GFR (CKD) >90 (>60 ml/min/1.73 sqM); Anion Gap 9 mmol/L; Blood Urea Nitrogen 14 mg/dL (7-17); Calcium 8.9 mg/dL (8.4-10.2); Carbon Dioxide 23 mmol/L (22-30); Chloride 106 mmol/L (98-107); Glucose 148 mg/dL (74-99); Non-African American GFR(CKD) >90 (>60 ml/min/1.73 sqM); Potassium 4.1 mmol/L (3.5-5.1); Sodium 138 mmol/L (137-145)
[2024-07-17 12:00] LABS: Glucose,Whole Blood 321 mg/dL (70-110)
[2024-07-17 12:27] VITALS: BMI 24.3
--- NOTE | 2024-07-17 14:06 | P.DS ---
Providers Date of admission: 07/16/24 01:09 Attending physician: Ko Laurent MD Consults: 07/16/24 09:47 Consult Physician Stat Consulting Provider: Jarrod Jurado Reason/Comments: Psychiatric evaluation, history of depression Do you want consulting provider notified?: Yes Primary care physician: Stated None Hospital Course: Discharge Diagnosis: #Diabetic ketoacidosis, resolved #History of depression and anxiety #History of alcohol abuse Hospital Course: Patient is a 53-year-old female with history of anxiety, depression, type 1 diabetes was brought to the ER via EMS with police escort for psychiatric evaluation. As per the note and while talking to the patient today this morning, patient was found screaming and crying on the ground outside neighbors house because she was very upset from last couple of days after getting fired from her job. Patient reports that she has type I diabetes and she has been changing her insulin regimen from last 3 days or so. However she admits that she has been taking long-acting insulin 30 units in the morning and as needed short acting insulin with meals. She also reports that she is taking Cymbalta 60 mg once daily and Wellbutrin 200 mg twice daily. She is not following any psychiatrist but has a primary care physician. Patient reports no smoking or use of illicit drugs. Initial laboratory evaluation shows WBC 6.8, hemoglobin 14.4, sodium 134, potassium 4.5, chloride 99, bicarb 15, anion gap 20, BUN 15, creatinine 1.04, glucose 457, serum osmolality 344, lactic acid 5.8,. Hematuria on urinalysis. UDS positive for serum alcohol 148. Subsequent lab work from 07/16/2024 shows sodium 136, potassium 4.3, chloride 106, bicarb 24, anion gap 6, BUN 16, creatinine 0.74, glucose 139, lactic acid 0.08. EKG shows sinus tachycardia ventricular rate of 106 bpm, AR interval 128 ms, QRS duration 79 ms, QTc 409 ms Diabetic ketoacidosis resolved. Patient continue improvement in symptoms. Patient denies abdominal pain, nausea, vomiting, shortness of breath. She is tolerating her diet well. Blood sugar is well-controlled. Patient is hemodynamically stable and medically optimized for discharge. Patient to follow-up with PCP within 1 to 2 days. Discharge disposition: Home with self care Vital signs reviewed. General: non toxic, no distress, appears at stated age, overweight Derm: no unusual rashes/lesions, warm Head: atraumatic, normocephalic, symmetric Eyes: EOMI, no lid lag, anicteric sclera, pupils equal round reactive to light ENT: Nose and ears atraumatic Neck: No cervical lymphadenopathy, trachea midline, supple Mouth: no lip lesion, mucus membranes moist Cardiovascular: S1S2 reg, no murmur, positive dorsalis pedis pulse bilateral, no edema Lungs: CTA bilateral, no rhonchi, no rales, no accessory muscle use Abdominal: soft, nontender to palpation, no guarding Ext: muscle strength 5 out of 5 in all 4 extremities grossly, no gross muscle atrophy, no contractures, Neuro: CN II-XI grossly intact, no gross focal neuro deficits Psych: Alert, oriented, to be evaluated by psychiatry Dictation was produced using [employer] dictation software. Please excuse any grammatical, word or spelling errors. Patient Condition at Discharge: Serious Plan - Discharge Summary Discharge Rx Participant: No New Discharge Prescriptions: New traZODone HCL [Desyrel] 50 mg PO HS PRN #30 tab PRN Reason: Insomnia Continue DULoxetine HCL [Cymbalta] 60 mg PO DAILY Insulin Glargine,Hum.rec.anlog [Lantus Solostar Pen] 31 units SQ DAILY Insulin Aspart [Insulin Aspart Flexpen] See Protocol SQ TID-W/MEALS PRN PRN Reason: high bs Discontinued buPROPion HCL [Wellbutrin SR] 200 mg PO BID Discharge Medication List DULoxetine HCL [Cymbalta] 60 mg PO DAILY 07/16/24 [History] Insulin Aspart [Insulin Aspart Flexpen] See Protocol SQ TID-W/MEALS PRN 07/16/24 [History] Insulin Glargine,Hum.rec.anlog [Lantus Solostar Pen] 31 units SQ DAILY 07/16/24 [History] traZODone HCL [Desyrel] 50 mg PO HS PRN #30 tab 07/17/24 [Rx] Follow up Appointment(s)/Referral(s): Tara Art MD [RESIDENT] - 1 Week None,Stated [Primary Care Provider] - 1-2 days Patient Instructions/Handouts: Diabetic Ketoacidosis (DC) Activity/Diet/Wound Care/Special Instructions: Please follow-up with your PCP in 1 to 2 days. If you do not have a PCP please contact the address below: [facility] in [place], [place] Address: [id number], [place] [address] Discharge Disposition: HOME SELF-CARE
== END 2024-07-17 15:08 | disposition home or self-care (01) | DRG 639 ==
LOC: EC 18:43 → 3SCARD 07-16 01:09 → 4SSUR 07-16 06:47
PROVIDERS: ADMIT Internal Medicine; ATTEND Internal Medicine
DX: E10.10 Type 1 diabetes mellitus with ketoacidosis without coma (principal); F10.129 Alcohol abuse with intoxication, unspecified; F32.A Depression, unspecified; Z79.4 Long term (current) use of insulin; R45.1 Restlessness and agitation; F17.200 Nicotine dependence, unspecified, uncomplicated; F41.9 Anxiety disorder, unspecified; Y90.6 Blood alcohol level of 120-199 mg/100 ml; Z56.0 Unemployment, unspecified; T38.3X6A Underdosing of insulin and oral hypoglycemic [antidiabetic] drugs, initial encounter; Z79.899 Other long term (current) drug therapy; Z91.128 Patient's intentional underdosing of medication regimen for other reason; Z60.2 Problems related to living alone; Z88.0 Allergy status to penicillin
CPT/HCPCS: 36415; 80048; 80051; 80053; 80143; 80179; 80306; 80320; 81003; 82009; 82565; 82803; 82947; 83036; 83605; 83735; 83930; 84100; 84443; 84520; 85025; 93005; 96361; 96365; 96366; 96372; 99291